=== PATIENT | female | born 1970 | race Caucasian/White ===

== ENCOUNTER 2018-01-13 05:33 | Day surgery (SDC) | payer BC ==
[~2018-01-13] VITALS: Ht 152.4 cm; Wt 59.9 kg
[~2018-01-13 05:33] MED LIST: NOLVADEX20 MG PO; VALTREX50 MG/ML PO
[2018-01-13 09:01] VITALS: BP 100/58
[2018-01-13 09:52] VITALS: BP 110/55
== END 2018-01-13 09:50 | disposition home or self-care (01) ==
LOC: SDC 05:33
DX: N92.0 Excessive and frequent menstruation with regular cycle (principal); N94.6 Dysmenorrhea, unspecified; R87.619 Unspecified abnormal cytological findings in specimens from cervix uteri; Z85.3 Personal history of malignant neoplasm of breast; Z79.810 Long term (current) use of selective estrogen receptor modulators (SERMs); E66.3 Overweight; Z68.25 Body mass index [BMI] 25.0-25.9, adult; N80.0 Endometriosis of uterus; B00.9 Herpesviral infection, unspecified; Z80.49 Family history of malignant neoplasm of other genital organs; Z83.49 Family history of other endocrine, nutritional and metabolic diseases; Z80.3 Family history of malignant neoplasm of breast; Z88.1 Allergy status to other antibiotic agents; Z88.2 Allergy status to sulfonamides; Z91.040 Latex allergy status; Z91.013 Allergy to seafood
CPT/HCPCS: 88305; J0690; J1100; J1885; J2405; J3010

== ENCOUNTER 2018-06-14 05:31 | Day surgery (SDC) | payer BC ==
[~2018-06-14] VITALS: Ht 152.4 cm; Wt 59.8 kg
[2018-06-14 06:34] VITALS: BP 105/56
[2018-06-14 11:49] VITALS: BP 105/61
[2018-06-14 15:59] VITALS: BP 108/61
[2018-06-14 19:35] VITALS: BP 113/59
[2018-06-14 23:28] VITALS: BP 110/64
[2018-06-15 04:24] VITALS: BP 95/52
[2018-06-15 06:24] LABS: BASOPHIL (%) 0.5 % (0-1); EOSINOPHIL (%) 0.5 % (0-5); HEMATOCRIT 31.3 % (36.0-46.0); IMMATURE GRANULOCYTE (%) 0.3 % (0.0-0.7); LYMPHOCYTE (%) 32.3 % (15-42); LYMPHOCYTE COUNT 1.9 K/uL (1.0-2.8); MCH 32.6 PG (29.0-34.0); MCHC 33.2 G/DL (30.0-36.0); MCV 98.1 FL (83-99); MONOCYTE (%) 8.1 % (3-12); MONOCYTE COUNT 0.5 K/uL (0-0.8); NEUTROPHIL (%) 58.3 % (45-76); NEUTROPHIL COUNT 3.4 K/uL (1.8-6.4); PLATELET COUNT 170 K/uL (156-360); RBC DIS.WIDTH-CV 13.5 % (11.8-14.6); RBC DIS.WIDTH-SD 48.9 % (39-53); WHITE BLOOD COUNT 5.9 K/uL (4.1-10.2)
[2018-06-15 06:40] LABS: HEMOGLOBIN 10.4 G/DL (11.9-15.5); RED BLOOD COUNT 3.19 M/uL (3.80-5.20)
[2018-06-15 06:44] LABS: CHLORIDE 111 MEQ/L (99-109); CREATININE 0.9 MG/DL (0.6-1.3); GFR ESTIMATE (CALCULATED) > 59 mL/min/; GLUCOSE 95 mg/dL (70-99); POTASSIUM 4.3 MEQ/L (3.7-5.4); SODIUM 142 MEQ/L (136-147); UREA NITROGEN (BUN) 9 mg/dL (9-23)
[2018-06-15 08:00] VITALS: BP 101/55
[2018-06-15 11:28] VITALS: BP 110/60
== END 2018-06-15 14:10 | disposition home or self-care (01) ==
LOC: SDC 05:31 → 2SOUTH 09:45 → 2EAST 09:45 → ENRESERV 09:49 → 2EAST 11:31 → SDC 11:39 → 2EAST 06-15 14:10
PROVIDERS: Obstetrics & Gynecology Gynecology
DX: N80.0 Endometriosis of uterus (principal); N94.6 Dysmenorrhea, unspecified; N92.0 Excessive and frequent menstruation with regular cycle; N83.8 Other noninflammatory disorders of ovary, fallopian tube and broad ligament; Z85.3 Personal history of malignant neoplasm of breast; Z88.1 Allergy status to other antibiotic agents
CPT/HCPCS: 80048; 81025; 85025; 87086; 88302; 88305; 88307; G0378; J0330; J0690; J1100; J1170; J1644; J1885; J2001; J2250; J2405; J2710; J3010; J3475; J7120; J7643; Q0175